=== PATIENT | female | born 1955 | race Caucasian/White ===

== ENCOUNTER 2024-10-30 14:30 | Outpatient (RCR) | payer MEDICARE, BC, SELFPAY | END 2024-12-17 16:00 | disposition home or self-care (01) | PROVIDERS: PCP Family Medicine; Visit Provider Family Medicine | DX: M25.512 Pain in left shoulder (principal); G89.29 Other chronic pain; M70.61 Trochanteric bursitis, right hip; M54.41 Lumbago with sciatica, right side; M79.18 Myalgia, other site; M25.811 Other specified joint disorders, right shoulder; Z51.89 Encounter for other specified aftercare | CPT/HCPCS: 97110; 97140; 97162 ==